=== PATIENT | male | born 1960 | race Caucasian/White ===

== ENCOUNTER 2017-06-16 21:43 | Emergency (ER) | payer OTHER ==
[~2017-06-16] VITALS: Ht 180.3 cm; Wt 85.7 kg
[2017-06-16 21:49] VITALS: BP 139/86
--- NOTE | 2017-06-16 22:00 | NUR ---
PATIENT AMBULATED TO ER CHAIR A.
--- NOTE | 2017-06-16 22:02 | NUR ---
PATIENT IS A 57 Y/O MALE WHO PRESENTS TO THE ED C/O FOOT PAIN. PT STATES, "IT HAS BEEN HURTING ME FOR ABOUT 1 MONTH." PT REPORTS 6/10 ACHING PAIN THAT DOES NOT RADIATE. PT DENIES CP, SOB, N/V/D. NOTED PEELING SKIN TO RIGHT GREAT TOE. NOTED NO BLEEDING OR TRAUMA. PT AAOX4, RR EVEN/UNLABORED. PT REPOSITIONED FOR COMFORT, PT SITTING IN CHAIR. ER MD DR. RIVERA NOTIFIED. WILL CONTINUE TO MONITOR. PMH--DM
--- NOTE | 2017-06-16 22:11 | NUR ---
Dr. Espinosa evaluating patient.
[2017-06-16] MEDS ORDERED: cefTRIAXone 1,000 MG in LIDOCAINE MPF 1% - **ER/OR** 2.1 ML IM ONE (22:15)
[2017-06-16] MEDS ORDERED: BACITRACIN OINT 500 UNITS/GM PKT TP ONE (22:40)
[2017-06-16 22:49] VITALS: BP 129/81
--- NOTE | 2017-06-16 22:49 | NUR ---
Patient discharged with v/s stable. Written and verbal after care instructions given and explained. Patient alert, oriented and verbalized understanding of instructions. Ambulatory with steady gait. All questions addressed prior to discharge. ID band removed. Patient advised to follow up with PMD. Rx of KEFLEX 500MG AND BACTRIM 800MG given. Patient educated on indication of medication including possible reaction and side effects. Opportunity to ask questions provided and answered.
== END 2017-06-16 22:49 | disposition home or self-care (01) ==
LOC: MED 21:43
DX: L03.031 Cellulitis of right toe (principal); R03.0 Elevated blood-pressure reading, without diagnosis of hypertension; E11.9 Type 2 diabetes mellitus without complications
CPT/HCPCS: 10060; 82948; 96372; 99283; J0696; J2001

== ENCOUNTER 2018-09-04 14:50 | Emergency (ER) | payer OTHER ==
[~2018-09-04] VITALS: Ht 177.8 cm; Wt 85.7 kg
[2018-09-04 15:04] VITALS: BP 118/69
--- NOTE | 2018-09-04 15:17 | NUR ---
PT AMB TO BED 1
--- NOTE | 2018-09-04 15:20 | NUR ---
BIB . AAO X4 C/O GENERALIZED ABDOMINAL PAIN RADIATING TO RIGHT BACK PAIN X 4 DAYS. RASHES TO RIGHT MID ABDOMEN, RAISED SKIN WITH ERYTHEMA AND FLUID FILLED TO RIGHT FLANK & RIGHT MID BACK X YESTERDAY. DENIES, FEVER, DYSURIA OR N/V/D. HOB UP. BED SIDE RAILS UP X1. ON LOW BED POSITION, LOCKED. ER MADE AWARE OF PT STATUS.
--- NOTE | 2018-09-04 15:25 | NUR ---
DR FOLEY AT BEDSIDE FOR PT EVALUATION
[2018-09-04 15:38] VITALS: BP 118/69
--- NOTE | 2018-09-04 15:38 | NUR ---
Patient discharged with v/s stable. Written and verbal after care instructions given and explained. Patient alert, oriented and verbalized understanding of instructions. Ambulatory with steady gait. All questions addressed prior to discharge. ID band removed. Patient advised to follow up with PMD. Rx of [place] 5mg-325 mg, Acyclovir, Gabapentin given. Patient educated on indication of medication including possible reaction and side effects. Opportunity to ask questions provided and answered.
== END 2018-09-04 15:38 | disposition home or self-care (01) ==
LOC: MED 14:50
DX: B02.9 Zoster without complications (principal)
CPT/HCPCS: 99283